=== PATIENT | female | born 1990 | race Hispanic/Latino ===

== ENCOUNTER 2018-03-23 19:41 | Inpatient (IN) | payer OTHER ==
[~2018-03-23] VITALS: Ht 167.6 cm; Wt 98.0 kg
[~2018-03-23 19:41] MED LIST: IBUP-2070 PO
[2018-03-23 21:16] LABS: APPEARANCE,URINE Clear (CLEAR); BILIRUBIN,URINE Negative (NEGATIVE); COLOR,URINE Yellow (YELLOW); GLUCOSE, URINE (UA) Negative (NEGATIVE); KETONES,URINE Negative (NEGATIVE); LEUKOCYTE ESTERASE ,URINE Moderate (NEGATIVE); NITRATE,URINE Negative (NEGATIVE); OCCULT BLOOD,URINE Trace (NEGATIVE); PH,URINE 6.5 (5.0-8.0); PROTEIN,URINE Negative (NEGATIVE); UROBILINOGEN,URINE 0.2 mg/dL (0.2-1.0)
[2018-03-23 21:29] LABS: BACTERIA,URINE Few /HPF (None Seen); RBC,URINE 0-1 /HPF (0-1)
[2018-03-23 21:30] LABS: SQUAMOUS EPITHELIAL CELL,UR Few /HPF (0-2)
[2018-03-23] MEDS ORDERED: OXYTOCIN-LR 20 UNITS/1000 ML 1,000 ML IV SCH (21:30)
[2018-03-23 22:15] LABS: HEMATOCRIT 33.4 % (36-48); MEAN CORPUSCULAR HEMOGLOBIN 30.4 pg (27.0-33.0); MEAN CORPUSCULAR HGB CONC 33.9 g/dL (32.0-36.0); MEAN CORPUSCULAR VOLUME 89.5 fL (79-99); PLATELET COUNT (AUTO) 277 K/uL (130-400); RED BLOOD CELL COUNT(AUTO) 3.73 MIL/uL (4.00-5.50); RED CELL DISTRIBUTION WIDTH 13.6 % (11.0-15.5); WHITE BLOOD COUNT (AUTO) 9.6 K/uL (4.8-10.8)
[2018-03-23] MEDS: LACTATED RINGERS 1000ML 1,000 ML IV PRN (22:21)
[2018-03-24] MEDS: LACTATED RINGERS 1000ML 1,000 ML IV PRN (05:13)
[2018-03-24] MEDS ORDERED: LACTATED RINGERS 1000ML 1,000 ML IV ONE ×2 (07:23→12:39)
[2018-03-24] MEDS ORDERED: OXYTOCIN 10 USP UNITS/ML ONE ×2 (07:23→12:39)
[2018-03-24] MEDS ORDERED: PROMETHAZINE HCL 25 MG/ML 1ML AMPULE IM SCH (10:30)
[2018-03-24] MEDS ORDERED: MEPERIDINE-PF 50 MG/ML SYG IVP SCH (10:30)
[2018-03-24] MEDS ORDERED: LIDOCAINE HCL MPF 1% 5ML VIAL ONE (12:02)
[2018-03-24] MEDS ORDERED: SILVER NITRATE APPLICATOR 1 SWAB TP ONE ×2 (12:16→12:20)
[2018-03-24] MEDS ORDERED: MEASLES/MUMPS/RUBELLA VACCINE, LIVE 0.5 ML/VIAL SQ PRN (12:30)
[2018-03-24] MEDS ORDERED: ACETAMINOPHEN 325 MG TAB PO PRN (12:30)
[2018-03-24] MEDS ORDERED: LANOLIN 30GM OINTMENT TP PRN (12:30)
[2018-03-24] MEDS ORDERED: DIPH,PERTUSS(ACELL),TET VAC/PF 0.5 ML VIAL IM PRN (12:30)
[2018-03-24] MEDS ORDERED: BENZOCAINE/LANOLIN/ALOE VERA 60 ML AEROSOL TP PRN (12:30)
[2018-03-24] MEDS ORDERED: HYDROCODONE/ACETAMINOPHEN 5/325 MG TAB PO PRN (12:30)
[2018-03-24] MEDS ORDERED: WITCH HAZEL 1 PAD TP PRN (12:30)
[2018-03-24] MEDS ORDERED: ACETAMINOPHEN-CODEINE 300/30MG TAB PO PRN (12:30)
[2018-03-24 14:23] VITALS: BP 100/61
[2018-03-24 16:18] VITALS: BP 118/67
[2018-03-24] MEDS: IBUPROFEN 800 MG TAB PO PRN (18:57)
[2018-03-24 20:14] VITALS: BP 104/63
[2018-03-24] MEDS: DOCUSATE SODIUM 100 MG CAP PO SCH (20:41)
[2018-03-25 00:10] VITALS: BP 95/55
[2018-03-25 04:02] VITALS: BP 97/59
[2018-03-25] MEDS: IBUPROFEN 800 MG TAB PO PRN (05:12)
[2018-03-25 05:23] LABS: HEMATOCRIT 27.6 % (36-48); MEAN CORPUSCULAR HGB CONC 33.5 g/dL (32.0-36.0); MEAN CORPUSCULAR VOLUME 89.5 fL (79-99); PLATELET COUNT (AUTO) 297 K/uL (130-400); RED BLOOD CELL COUNT(AUTO) 3.09 MIL/uL (4.00-5.50); RED CELL DISTRIBUTION WIDTH 13.2 % (11.0-15.5); WHITE BLOOD COUNT (AUTO) 14.1 K/uL (4.8-10.8)
[2018-03-25 07:12] VITALS: BP 89/49
[2018-03-25 07:30] LABS: HEPATITIS Bs ANTIGEN SCREEN P Negative (Negative)
[2018-03-25] MEDS: DOCUSATE SODIUM 100 MG CAP PO SCH (09:21)
[2018-03-25 11:01] VITALS: BP 89/49
== END 2018-03-25 13:00 | disposition home or self-care (01) | DRG 807 ==
LOC: OBSVTOIN 19:41 → LDH 19:41 → WSH 03-24 14:16
PROVIDERS: ADMIT Obstetrics & Gynecology; ATTEND Obstetrics & Gynecology
PROC: 10E0XZZ Delivery of Products of Conception, External Approach (ICD-10-PCS; principal; 2018-03-24)
PROC: 3E02340 Introduction of Influenza Vaccine into Muscle, Percutaneous Approach (ICD-10-PCS; 2018-03-24)
DX: O90.81 Anemia of the puerperium (principal); Z37.0 Single live birth; O70.1 Second degree perineal laceration during delivery; D64.9 Anemia, unspecified; Z3A.00 Weeks of gestation of pregnancy not specified; Z23 Encounter for immunization
CPT/HCPCS: 36415; 81001; 85027; 86592; 86850; 86900; 86901; 87340; A4351; A4606; J2175; J2550; J2590; J3490; J7120; Q2038